=== PATIENT | female | born 1950 | race Caucasian/White ===

== ENCOUNTER 2017-02-07 20:46 | Inpatient (IN) | payer MEDICARE, OTHER ==
[~2017-02-07] VITALS: Ht 157.5 cm; Wt 67.6 kg
[2017-02-07 22:16] LABS: APPEARANCE CLEAR (CLEAR); BILIRUBIN NEGATIVE (NEGATIVE); COLOR YELLOW (YELLOW); GLUCOSE NEGATIVE (NEGATIVE); KETONE NEGATIVE (NEGATIVE); NITRITE NEGATIVE (NEGATIVE); PROTEIN NEGATIVE (NEGATIVE); UROBILINOGEN NORMAL (NORMAL)
[2017-02-07 22:17] LABS: BASOPHILS 0.1 % (0-2); EOSINOPHILS 6.3 % (0-7); HEMATOCRIT 34.8 % (36.0-48.0); HEMOGLOBIN 11.8 g/dL (12-16); LYMPHOCYTES 6.4 % (15-50); MCH 32.7 pg (26.0-34.0); MCHC 33.9 g/dL (31.0-37.0); MCV 96.4 fL (80.0-100.0); MEAN PLATELET VOLUME 9.6 fL (7.4-10.4); MONOCYTES 7.7 % (2-11); NEUTROPHILS 78.5 % (40-80); PLATELET COUNT 223 10x3/uL (130-400); RBC 3.61 10x6/uL (4.00-5.40); RDW 13.1 % (11.5-14.5); WBC 7.4 10x3/uL (4.8-10.8)
[2017-02-07 22:30] LABS: ALBUMIN 3.5 g/dL (3.4-5.0); ANION GAP 9.6 mmol/L (8-16); BILIRUBIN - TOTAL 0.4 mg/dL (0.2-1.3); CARBON DIOXIDE 28.4 mmol/L (21.0-32.0); CREATININE - SERUM 1.6 mg/dL (0.6-1.3); PROTEIN - SERUM 7.1 g/dL (6.4-8.2)
--- NOTE | 2017-02-08 01:38 | NUR ---
RECIEVED PT TO FLOOR FROM ED VIA WHEELCHAIR. ALERT AND ORIENTED AND ABLE TO VERBALIZE NEEDS. IV IS PATENT AND FLUIDS ARE RUNNING FROM ED. PT TRANSFERED SELF TO BED FROM WHEELCHAIR. PT STATES PAIN IS 5/10. PT IS ORIENTED TO ROOM AND USE OF CALL LIGHT. NO NEEDS ARE VERBALIZED AT THIS TIME. WILL CONTINUE TO MONITOR. SIDE RAILS ARE UP X 2. BED IS IN LOWEST POSITION. CALL LIGHT IS WITHIN REACH.
--- NOTE | 2017-02-08 02:28 | NUR ---
ADMIT ASSESSMENT COMPLETED. ANTIBIOTIC HUNG PER ORDER. TELEMETRY PLACED ON PER ORDER. NO NEEDS ARE VOICED. WILL MONITOR. SIDE RAILS X 2. BED LOW. CALL LIGHT IN REACH.
[2017-02-08 02:55] VITALS: BP 119/62; BMI 27.3
[2017-02-08] MEDS ORDERED: CARAFATE1 G PO (03:56)
[2017-02-08] MEDS ORDERED: BENTYL10 MG PO (03:56)
[2017-02-08] MEDS ORDERED: PRILOSEC PO (03:56)
[2017-02-08] MEDS ORDERED: CELEXA20 MG PO (03:57)
[2017-02-08] MEDS ORDERED: ATIVAN1 MG PO (03:57)
[2017-02-08] MEDS ORDERED: PROBIOTIC1 EAC1 PO (03:58)
[2017-02-08 07:57] VITALS: BP 115/76
[2017-02-08 08:09] LABS: BASOPHILS 0 % (0-2); HEMATOCRIT 32.3 % (36.0-48.0); HEMOGLOBIN 10.9 g/dL (12-16); LYMPHOCYTES 7.7 % (15-50); MCH 32.5 pg (26.0-34.0); MCHC 33.7 g/dL (31.0-37.0); MCV 96.4 fL (80.0-100.0); MEAN PLATELET VOLUME 9.3 fL (7.4-10.4); MONOCYTES 8.2 % (2-11); NEUTROPHILS 73.1 % (40-80); PLATELET COUNT 200 10x3/uL (130-400); RBC 3.35 10x6/uL (4.00-5.40); RDW 13.1 % (11.5-14.5); WBC 6.8 10x3/uL (4.8-10.8)
[2017-02-08 08:23] LABS: ALBUMIN 3.1 g/dL (3.4-5.0); ANION GAP 11.4 mmol/L (8-16); BILIRUBIN - TOTAL 0.41 mg/dL (0.2-1.3); CALCIUM 8.6 mg/dL (8.5-10.1); CARBON DIOXIDE 26.6 mmol/L (21.0-32.0); CREATININE - SERUM 1.5 mg/dL (0.6-1.3); PHOSPHOROUS 4.2 mg/dL (2.5-4.9); PROTEIN - SERUM 6.6 g/dL (6.4-8.2)
[2017-02-08 11:01] VITALS: BMI 27.2
--- NOTE | 2017-02-08 11:27 | NUR ---
Patient Name: REJI PRUITT Admission Status: ER Accout number: [id number] Admission Date: 02-08-2017 : 1950 Admission Diagnosis: Attending: CESAR LATHAM Current LOS: 1 Anticipated DC Date: Planned Disposition: Home Primary Insurance: MEDICARE A & B Discharge Planning Comments: CM met with patient and son to assess discharge planning needs. Patient just moved to [place] to stay with her daughter, KEERTHI Moslye. She is living with her and seeing Aston and Dr Valera. She denies any HH or DME at this present time. CM will continue to follow and assist with discharge planning needs. PCP: Jc Adorno Bailee Mosley (daughter) [phone] Rojelio Sharif (son) [phone] Golf Course Ranger: Lanette Santos * Is the patient Alert and Oriented? Yes 0 * PCP [facility] 0 * Pharmacy [facility] 0 * Preadmission Environment Home with Family 0 * ADLs Independent 0 * Equipment None 0 * List name and contact numbers for known caregivers / representatives who currently or will assist patient after discharge: Bailee Mosley (daughter) [phone] Rojelio Kole (son) [phone] * Community resources currently utilized None 0 * Additional services required to return to the preadmission environment? No 0 * Can the patient safely return to the preadmission environment? Yes 0 * Has this patient been hospitalized within the prior 30 days at any hospital? No 0 Grand Total: 0
[2017-02-08 12:30] VITALS: BP 132/71
[2017-02-08 15:13] VITALS: Ht 157.5 cm; Wt 67.6 kg
[2017-02-08 15:47] VITALS: BP 127/74
--- NOTE | 2017-02-08 18:17 | NUR ---
DENIES NEEDS AT PRESENT.CALL LIGHT IN REACH
[2017-02-08 20:00] VITALS: BP 115/73
[2017-02-09] VITALS: BP 115/79
[2017-02-09 04:00] VITALS: BP 130/65
[2017-02-09 06:16] LABS: BASOPHILS 0.2 % (0-2); EOSINOPHILS 9.7 % (0-7); HEMATOCRIT 31.6 % (36.0-48.0); HEMOGLOBIN 10.6 g/dL (12-16); IMMATURE GRANULOCYTES 0.9 % (0-5); LYMPHOCYTES 7.1 % (15-50); MCH 32.6 pg (26.0-34.0); MCHC 33.5 g/dL (31.0-37.0); MCV 97.2 fL (80.0-100.0); MEAN PLATELET VOLUME 9.5 fL (7.4-10.4); NEUTROPHILS 72.1 % (40-80); PLATELET COUNT 212 10x3/uL (130-400); RBC 3.25 10x6/uL (4.00-5.40); WBC 6.4 10x3/uL (4.8-10.8)
[2017-02-09 07:05] LABS: ALBUMIN 3.1 g/dL (3.4-5.0); ANION GAP 13.4 mmol/L (8-16); BILIRUBIN - TOTAL 0.34 mg/dL (0.2-1.3); CALCIUM 8.5 mg/dL (8.5-10.1); CARBON DIOXIDE 26.9 mmol/L (21.0-32.0); CREATININE - SERUM 1.4 mg/dL (0.6-1.3); PROTEIN - SERUM 6.4 g/dL (6.4-8.2)
[2017-02-09 07:09] LABS: POTASSIUM - SERUM 3.3 mmol/L (3.5-5.1)
[2017-02-09 07:50] VITALS: BP 125/56
--- NOTE | 2017-02-09 08:00 | NUR ---
REC'D IN BED AWAKE AND ALERT. RESP EVEN AND UNLABORED WITH NO DISTRESS NOTED. CAN EXPRESS NEEDS AND WANTS. ASSESSMENT COMPLFETED AT THIS TIME. C/L IN REACH AT BEDSIDE.
[2017-02-09 12:26] VITALS: BP 127/67
--- NOTE | 2017-02-09 14:19 | NUR ---
PT RESTING IN BED, EASILY AROUSED. NO NEEDS VOICED AT THIS TIME, FAMILY AT BEDSIDE. NO SIGNS OF ACUTE DISTRESS. BED IN LOWEST POSITION, SIDE RAILS UP X 2, CALL LIGHT WITHIN REACH.
[2017-02-09 15:32] VITALS: BP 130/70
[2017-02-09 20:00] VITALS: BP 133/71
[2017-02-10 05:13] LABS: BASOPHILS 0.2 % (0-2); EOSINOPHILS 11.8 % (0-7); HEMATOCRIT 31.7 % (36.0-48.0); HEMOGLOBIN 10.4 g/dL (12-16); IMMATURE GRANULOCYTES 0.9 % (0-5); LYMPHOCYTES 11.8 % (15-50); MCH 31.9 pg (26.0-34.0); MCHC 32.8 g/dL (31.0-37.0); MCV 97.2 fL (80.0-100.0); MEAN PLATELET VOLUME 9.1 fL (7.4-10.4); NEUTROPHILS 63.3 % (40-80); PLATELET COUNT 208 10x3/uL (130-400); RBC 3.26 10x6/uL (4.00-5.40); WBC 5.7 10x3/uL (4.8-10.8)
[2017-02-10 05:21] LABS: ANION GAP 11.2 mmol/L (8-16); BILIRUBIN - TOTAL 0.25 mg/dL (0.2-1.3); CALCIUM 8.5 mg/dL (8.5-10.1); CARBON DIOXIDE 29.9 mmol/L (21.0-32.0); CREATININE - SERUM 1.2 mg/dL (0.6-1.3); POTASSIUM - SERUM 3.1 mmol/L (3.5-5.1); PROTEIN - SERUM 6.3 g/dL (6.4-8.2)
--- NOTE | 2017-02-10 07:10 | NUR ---
REPORT RECEIVED FROM BEHAVIORAL SCIENCES DEPARTMENT CHAIR NURSE. CALL LIGHT IN REACH.
[2017-02-10 08:10] VITALS: BP 127/78
--- NOTE | 2017-02-10 08:50 | NUR ---
ASSESSMENT COMPLETED. AM MEDS ADMINISTERED. IV TUBING CHANGED PER HOSPITAL POLICY. CALL LIGHT IN REACH. WILL CONTINUE WITH PLAN OF CARE.
--- NOTE | 2017-02-10 10:10 | NUR ---
NO NEEDS VOICED AT THIS TIME. CALL LIGHT IN REACH.
--- NOTE | 2017-02-10 12:28 | NUR ---
NUTRITION F/U CHART REVIEWED. PT REMAINS ON CLEAR LIQUID DIET. WILL MONITOR DIET ADVANCEMENT, PO INTAKE. RD FOLLOWING
--- NOTE | 2017-02-10 12:52 | NUR ---
RAJWINDER GORDON. VISITOR IN ROOM. CALL LIGHT IN REACH.
[2017-02-10 12:53] VITALS: BP 126/69
--- NOTE | 2017-02-10 13:01 | NUR ---
ZOFRAN 8 MG SIVP PER C/O NAUSEA. CALL LIGHT IN REACH.
--- NOTE | 2017-02-10 15:30 | NUR ---
IV TO LEFT AC WITH REDNESS AND SWELLING. DC'D WITH TIP INTACT.
[2017-02-10 15:50] VITALS: BP 133/67
--- NOTE | 2017-02-10 17:35 | NUR ---
TYLENOL PO PER C/O REYNA. SCDs APPLIED TO BLE. VISITOR IN ROOM. CALL LIGHT IN REACH.
--- NOTE | 2017-02-10 18:10 | NUR ---
IV RESITED TO LEFT FOREARM WITH 22 GA X1 STICK. SCDs APPLIED TO BLE. CALL LIGHT IN REACH. WILL CONTINUE WITH PLAN OF CARE.
[2017-02-10 20:00] VITALS: BP 128/70
[2017-02-11] VITALS: BP 122/63
[2017-02-11 04:00] VITALS: BP 134/69
[2017-02-11 04:43] LABS: BASOPHILS 0.4 % (0-2); EOSINOPHILS 13.1 % (0-7); HEMATOCRIT 32.7 % (36.0-48.0); HEMOGLOBIN 10.9 g/dL (12-16); IMMATURE GRANULOCYTES 0.9 % (0-5); LYMPHOCYTES 14.8 % (15-50); MCH 32.1 pg (26.0-34.0); MCHC 33.3 g/dL (31.0-37.0); MCV 96.2 fL (80.0-100.0); MONOCYTES 14.4 % (2-11); NEUTROPHILS 56.4 % (40-80); PLATELET COUNT 239 10x3/uL (130-400); RDW 12.9 % (11.5-14.5); WBC 5.3 10x3/uL (4.8-10.8)
[2017-02-11 05:09] LABS: ALBUMIN 3.2 g/dL (3.4-5.0); BILIRUBIN - TOTAL 0.2 mg/dL (0.2-1.3); CALCIUM 8.6 mg/dL (8.5-10.1); CARBON DIOXIDE 28.8 mmol/L (21.0-32.0); CREATININE - SERUM 1.3 mg/dL (0.6-1.3); PROTEIN - SERUM 6.5 g/dL (6.4-8.2)
[2017-02-11 05:15] LABS: POTASSIUM - SERUM 2.8 mmol/L (3.5-5.1)
--- NOTE | 2017-02-11 07:55 | NUR ---
PT AOX4 RESP EVEN AND NONLABORED IV TO LEFT FOREARM PATENT AND INTACT AT THIS TIME SRX2 BED AT LOWEST SETTING CALL LIGHT WITHIN REACH WILL CONTINUE TO MONITOR
[2017-02-11 08:45] VITALS: BP 146/75
[2017-02-11 13:33] VITALS: BP 151/81
[2017-02-11 16:45] VITALS: BP 118/62
[2017-02-11 20:00] VITALS: BP 133/71
[2017-02-12 04:00] VITALS: BP 123/64
[2017-02-12 06:22] LABS: EOSINOPHILS 9.6 % (0-7); HEMATOCRIT 31.4 % (36.0-48.0); HEMOGLOBIN 10.7 g/dL (12-16); LYMPHOCYTES 26.3 % (15-50); MCH 32.7 pg (26.0-34.0); MCHC 34.1 g/dL (31.0-37.0); MEAN PLATELET VOLUME 9.2 fL (7.4-10.4); MONOCYTES 14.6 % (2-11); NEUTROPHILS 47.5 % (40-80); PLATELET COUNT 258 10x3/uL (130-400); RBC 3.27 10x6/uL (4.00-5.40); RDW 13.1 % (11.5-14.5); WBC 5.2 10x3/uL (4.8-10.8)
[2017-02-12 06:44] LABS: ANION GAP 9.4 mmol/L (8-16); BILIRUBIN - TOTAL 0.2 mg/dL (0.2-1.3); CALCIUM 8.7 mg/dL (8.5-10.1); CREATININE - SERUM 1.2 mg/dL (0.6-1.3); PROTEIN - SERUM 6.2 g/dL (6.4-8.2)
[2017-02-12 06:45] LABS: POTASSIUM - SERUM 3.4 mmol/L (3.5-5.1)
--- NOTE | 2017-02-12 08:21 | NUR ---
AWAKE AND ALERT. ORIENTED X3. C/O NOT BREATHING NORMALLY, LUNGS ARE CLEAR BILATERALLY BUT DIMINISHED IN RIGHT LOWER LOBE WITH GOOD AIR FLOW, DENIES COUGH. SKIN IS INTACT WITHOUT REDNESS ALTHOUGH SLIGHT RASH STILL NOTED TO BILATERAL LOWER EXTREMETIES. NO C/O ITCHING. IV TO RIGHT FOREARM IS PATENT WITHOUT REDNESS AT INSERTION SITE. DENIES NEEDS.
[2017-02-12 09:11] VITALS: BP 136/73
[2017-02-12 11:59] VITALS: BP 151/91
[2017-02-12 16:19] VITALS: BP 151/75
[2017-02-12 20:00] VITALS: BP 137/75
--- NOTE | 2017-02-13 03:38 | NUR ---
PT C/O THROAT PAIN. GAVE HOT TEA TO DRINK. PT DRANK ABOUT 220 MLS AND VOMITED TEA AFTER COUGHING SPELL. PT STATES SHE IS NOT NAUSEATED BUT SHE HAD GOTTEN A PIECE OF HAMBURGER "STUCK" IN HER THROAT EARLIER IN THE DAY WHICH WAS MAKING HER COUGH. NO OTHER NEEDS. WILL CONTINUE TO MONITOR.
[2017-02-13 04:00] VITALS: BP 128/80
[2017-02-13 06:37] LABS: BASOPHILS 0.6 % (0-2); EOSINOPHILS 5.2 % (0-7); HEMATOCRIT 33.2 % (36.0-48.0); HEMOGLOBIN 11.2 g/dL (12-16); LYMPHOCYTES 25.3 % (15-50); MCH 32.3 pg (26.0-34.0); MCHC 33.7 g/dL (31.0-37.0); MCV 95.7 fL (80.0-100.0); NEUTROPHILS 59.9 % (40-80); PLATELET COUNT 282 10x3/uL (130-400); RBC 3.47 10x6/uL (4.00-5.40); RDW 13.1 % (11.5-14.5)
[2017-02-13 06:39] LABS: WBC 8.4 10x3/uL (4.8-10.8)
--- NOTE | 2017-02-13 07:00 | NUR ---
REPORT RECIEVED ASSUMED CARE. PATIENT IN BED WITH NO COMPLAINTS AT THIS TIME. IV INTACT. CALL LIGHT WITHIN REACH.
[2017-02-13 07:02] LABS: ALBUMIN 3.3 g/dL (3.4-5.0); ANION GAP 13.9 mmol/L (8-16); BILIRUBIN - TOTAL 0.23 mg/dL (0.2-1.3); CARBON DIOXIDE 29.2 mmol/L (21.0-32.0); CREATININE - SERUM 1.1 mg/dL (0.6-1.3); POTASSIUM - SERUM 4.1 mmol/L (3.5-5.1); PROTEIN - SERUM 6.4 g/dL (6.4-8.2)
--- NOTE | 2017-02-13 08:30 | NUR ---
ASSESSMENT COMPLETE, VS STABLE. IV INTACT. NO COMPLAINTS AT THIS TIME. CALL LIGHT WITHIN REACH.
[2017-02-13 09:57] VITALS: BP 135/88
--- NOTE | 2017-02-13 12:45 | NUR ---
PATIENT IN BED WITH NO COMPLAINTS AT THIS TIME. PORT ACCESSED WITH 3/4 INCH NEEDLE AND 1 INCH NEEDLE. BOTH TIME FLUSHED WITH NO PROBLEMS. UNABLE TO DRAW. CALLED DR. SIMPSON. NEW ORDERS RECIEVED AND CARRIED OUT.
[2017-02-13 12:57] VITALS: BP 140/80
[2017-02-13] MEDS ORDERED: LEVAQUIN500 MG PO (14:14)
--- NOTE | 2017-02-13 14:47 | NUR ---
CM REASSESSMENT NOTE: PATIENT IS DISCHARGING HOME TODAY. SPOUSE DRIVING. PATIENTS SPOUSE STATED SHE DOES NOT NEED HOME HEALTH AND DENIED ANY OTHER NEEDS. IMM SERVED
[2017-02-13] MEDS ORDERED: IMODIUM2 MG PO (16:53)
--- NOTE | 2017-02-13 17:15 | NUR ---
PATIENT RECIEVED DC ORDERS. VERBALIZED UNDERSTANDING. NO QUESTIONS AT THIS THIS TIME. IV REMOVED EARLIER BY CARLI KHALIL. FAMILY AT SIDE. TEGAN LLIGHT WITHIN REACH. AWAITING WC FOR DC.
[2017-02-17 03:09] LABS: OVA + PARASITE EXAM Final report (())
[2017-02-21 04:13] LABS: OVA + PARASITE EXAM Final report (())
== END 2017-02-13 17:28 | disposition home or self-care (01) | DRG 378 ==
LOC: D.ER 20:46 → D.MS 02-08 00:47
PROVIDERS: Emergency Medicine; ADMIT Family Medicine
PROC: 0W983ZZ Drainage of Chest Wall, Percutaneous Approach (ICD-10-PCS; principal; 2017-02-13)
DX: K57.93 Diverticulitis of intestine, part unspecified, without perforation or abscess with bleeding (principal); C34.90 Malignant neoplasm of unspecified part of unspecified bronchus or lung; N17.9 Acute kidney failure, unspecified; F41.8 Other specified anxiety disorders; K21.9 Gastro-esophageal reflux disease without esophagitis; E86.0 Dehydration; K92.1 Melena; C50.919 Malignant neoplasm of unspecified site of unspecified female breast; Z17.0 Estrogen receptor positive status [ER+]; D64.89 Other specified anemias; Z87.891 Personal history of nicotine dependence

== ENCOUNTER → 2017-05-22 12:31 | Outpatient (CLI) | payer MEDICARE, OTHER ==
[2017-02-08 15:13] VITALS: BMI 27.2
--- NOTE | ~2017-05-22 | EC ---
PATIENT:REJI PRUITT DATE OF SERVICE: 05/22/17 SEX: F MEDICAL RECORD: [id number] DATE OF : [birth year] LOCATION:D[facility] AGE OF PATIENT: 67 ADMISSION DATE: 05/22/17 REFERRING PHYSICIAN: INTERPRETING PHYSICIAN: FIDE BOOGIE MD ECHOCARDIOGRAM REPORT ECHO CHARGES 4 ECHO COMPLETE Date: CLINICAL DIAGNOSIS: BREAST CANCER/BRONCHUS OR LUNG CANCER ECHOCARDIOGRAPHIC MEASUREMENTS (adult normal given) AC root (d.<3.7cm) 3.1 cm LV Septum d (<1.2 cm> 1.3 cm Valve Excursion 1.9 cm LV Septum (systole) 1.6 cm Left Atria (s.<4.0cm> 2.9 cm LVPW d(<1.2cm) 1.1 cm RV (d.<2.3cm) 2.4 cm LVPW (sytole) 1.8 cm LV diastole(<5.6CM) 3.9 cm MV E-F(>70mm/sec) cm LV systole 2.2 cm LVOT Diameter 1.7 cm MV exc.(>10mm) cm Est.ejection fraction (50-75%) % DOPPLER: LVIT cm/sec A 71.0 cm/sec E 52.0 cm/sec LA cm/sec RVSP 21.1 mmHg LVOT 111 cm/sec AOP1/2T m/s Asc. Ao 150 cm/sec RVOT 66.0 cm/sec RA cm/sec PA 118 cm/sec AV Gradient Peak 9.0 mmHg AV Mean 4.7 mmHg AV Area 1.6 cm MV Gradient Peak 3.7 mmHg MV Mean 1.5 mmHg MV Area cm COMMENTS: Print Shop Assistant: Dony YEPEZOE Cephalometric Tracer: 4 Dr. Boogie TAPE# PACS Pericardial Effusion N DATE OF SERVICE: ADDENDUM IMPRESSION: The patient's ejection fraction is hyperdynamic, the ejection fraction is 77%. There is no regional wall motion abnormalities. TRANSINT:[id number] Voice Confirmation ID: [id number] DOCUMENT ID: [id number] ECHOCARDIOGRAM REPORT [id number] REJI PRUITT FIDE BOOGIE MD at 142 CC: [id number] DICTATION DATE: 05/30/17 1027 SCRAPER LOADER OPERATOR: 05/30/17 1038 DEP CLI 05/22/17 [place] [id number] [place] [address]
--- NOTE | ~2017-05-22 | EC ---
PATIENT:REJI PRUITT DATE OF SERVICE: 05/22/17 SEX: F MEDICAL RECORD: [id number] DATE OF : [birth year] LOCATION:D.[facility] AGE OF PATIENT: 66 ADMISSION DATE: 05/22/17 REFERRING PHYSICIAN: INTERPRETING PHYSICIAN: FIDE BOOGIE MD ECHOCARDIOGRAM REPORT ECHO CHARGES 4 ECHO COMPLETE CLINICAL DIAGNOSIS: BREAST CANCER/BRONCHUS OR LUNG CANCER ECHOCARDIOGRAPHIC MEASUREMENTS (adult normal given) AC root (d.<3.7cm) 3.1 cm LV Septum d (<1.2 cm> 1.3 cm Valve Excursion 1.9 cm LV Septum (systole) 1.6 cm Left Atria (s.<4.0cm> 2.9 cm LVPW d(<1.2cm) 1.1 cm RV (d.<2.3cm) 2.4 cm LVPW (sytole) 1.8 cm LV diastole(<5.6CM) 3.9 cm MV E-F(>70mm/sec) cm LV systole 2.2 cm LVOT Diameter 1.7 cm MV exc.(>10mm) cm Est.ejection fraction (50-75%) % Pericardial Effusion N DOPPLER: LVIT cm/sec A 71.0 cm/sec E 52.0 cm/sec LA cm/sec RVSP 21.1 mmHg LVOT 111 cm/sec AOP1/2T m/s Asc. Ao 150 cm/sec RVOT 66.0 cm/sec RA cm/sec PA 118 cm/sec AV Gradient Peak 9.0 mmHg AV Mean 4.7 mmHg AV Area 1.6 cm MV Gradient Peak 3.7 mmHg MV Mean 1.5 mmHg MV Area cm COMMENTS: Making Machine Catcher: Dony YEPEZOE Delivery Stock Clerk: 4 Dr. Boogie TAPE# PACS DATE OF SERVICE: 05/22/2017 PROCEDURE: Transthoracic echocardiogram. FINDINGS: 1. Left ventricle shows mild concentric left ventricular hypertrophy with inflow characteristics consistent with diastolic dysfunction. 2. The mitral valve appears to be structurally and functionally normal. There does not appear to be significant mitral regurgitation. 3. The right ventricle is normal size, normal function. ECHOCARDIOGRAM REPORT [id number] REJI PRUITT 4. The left atrium is normal size, normal function. 5. The aortic valve is normal. 6. The pericardium is normal. 7. The tricuspid valve is normal. 8. The right atrium is normal. CONCLUSIONS: The patient has evidence of mild hypertensive heart disease, otherwise normal echocardiogram with preserved systolic function. TRANSINT:[id number] Voice Confirmation ID: [id number] DOCUMENT ID: [id number] FIDE BOOGIE MD at 0755 CC: [id number] DICTATION DATE: 05/23/17 1009 ELEVATOR MECHANIC: 05/23/17 1036 DEP CLI 05/22/17 [place] [id number]
[~2017-05-22 12:31] MED LIST: ATIVAN1 MG PO; BENTYL10 MG PO; CARAFATE1 G PO; CELEXA20 MG PO; IMODIUM2 MG PO; LEVAQUIN500 MG PO; PRILOSEC PO; PROBIOTIC1 EAC1 PO
== END | disposition home or self-care (01) ==
LOC: D.ECHO 12:31
DX: C50.112 Malignant neoplasm of central portion of left female breast (principal); C34.90 Malignant neoplasm of unspecified part of unspecified bronchus or lung

== ENCOUNTER → 2017-12-12 12:23 | Outpatient (CLI) | payer MEDICARE, OTHER ==
[2017-02-08 15:13] VITALS: BMI 27.2
--- NOTE | ~2017-12-12 | EC ---
PATIENT:REJI PRUITT DATE OF SERVICE: 12/12/17 SEX: F MEDICAL RECORD: [id number] DATE OF : [birth year] [facility] AGE OF PATIENT: 67 ADMISSION DATE: 12/12/17 REFERRING PHYSICIAN: INTERPRETING PHYSICIAN: FIDE BOOGIE MD ECHOCARDIOGRAM REPORT ECHO CHARGES 4 ECHO COMPLETE Date: 12/12/17 CLINICAL DIAGNOSIS: SOB, CHEMO TREATMENTS ECHOCARDIOGRAPHIC MEASUREMENTS (adult normal given) AC root (d.<3.7cm) 2.8 cm LV Septum d (<1.2 cm> 1.1 cm Valve Excursion 1.3 cm LV Septum (systole) 1.1 cm Left Atria (s.<4.0cm> 2.7 cm LVPW d(<1.2cm) 0.7 cm RV (d.<2.3cm) 2.1 cm LVPW (sytole) 1.2 cm LV diastole(<5.6CM) 4.5 cm MV E-F(>70mm/sec) cm LV systole 3.9 cm LVOT Diameter 1.9 cm MV exc.(>10mm) cm Est.ejection fraction (50-75%) % DOPPLER: LVIT cm/sec A 81 cm/sec E 90 cm/sec LA cm/sec RVSP 32.8 mmHg LVOT 117 cm/sec AOP1/2T m/s Asc. Ao 131 cm/sec RVOT 63 cm/sec RA cm/sec PA 75 cm/sec AV Gradient Peak 6.8 mmHg AV Mean 3.8 mmHg AV Area 2.2 cm MV Gradient Peak 2.9 mmHg MV Mean 1.5 mmHg MV Area cm COMMENTS: Electrical Engineer Mep: [facility] Design Engineer Marine Equipment: Moshe Boogie TAPE# PACS Pericardial Effusion N DATE OF SERVICE: INDICATION: Transthoracic echocardiogram. FINDINGS: 1. Left ventricle is normal size, shape, structure, and function. Ejection fraction is 60%. 2. The left atrium is normal. 3. The aortic valve is normal. 4. The mitral valve is normal. ECHOCARDIOGRAM REPORT [id number] REJI PRUITT 5. The tricuspid valve is normal. 6. The right ventricle is normal. 7. The right atrium is normal. 8. The pulmonic valve is normal. There is no pericardial effusion. CONCLUSION: The patient has a normal echocardiogram for stated age. TRANSINT:[id number] Voice Confirmation ID: [id number] DOCUMENT ID: [id number] FIDE BOOGIE MD at 2344 CC: [id number] DICTATION DATE: 12/13/17906 AB INITIO ETL DEVELOPER: 12/13/17 1046 DEP CLI 12/12/17 [place] [id number] [place] [id number]
== END | disposition home or self-care (01) ==
LOC: D.ECHO 12:23
DX: C50.112 Malignant neoplasm of central portion of left female breast (principal)

== ENCOUNTER → 2017-12-19 11:11 | Outpatient (CLI) | payer MEDICARE, OTHER ==
[2017-02-08 15:13] VITALS: BMI 27.2
[2017-12-19 12:15] LABS: ALBUMIN 3.8 g/dL (3.4-5.0); ANION GAP 14.5 mmol/L (8-16); BILIRUBIN - TOTAL 0.29 mg/dL (0.2-1.3); CALCIUM 9.3 mg/dL (8.5-10.1); CARBON DIOXIDE 26.8 mmol/L (21.0-32.0); CREATININE - SERUM 1.1 mg/dL (0.6-1.3); POTASSIUM - SERUM 4.3 mmol/L (3.5-5.1); PROTEIN - SERUM 7.2 g/dL (6.4-8.2)
== END | disposition home or self-care (01) ==
LOC: D.LABREF 11:11
PROVIDERS: Internal Medicine Hematology & Oncology
DX: C50.112 Malignant neoplasm of central portion of left female breast (principal); C34.90 Malignant neoplasm of unspecified part of unspecified bronchus or lung